=== PATIENT | female | born 1960 | race African-American/Black ===

== ENCOUNTER 2017-07-15 08:50 | Day surgery (SDC) | payer OTHER ==
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
[2017-07-15 09:21] LABS: Absolute Lymphocytes (CBC) 1.5 K/uL (0.7-4.9); Absolute Monocytes 0.3 K/uL (0.1-1.3); Absolute Neutrophil 1.6 K/uL (1.8-8.0); Basophils % 0.4 % (0-1.3); Eosinophils % 1.3 % (0-4.4); Hematocrit 37.1 % (36.0-45.0); Lymphocytes % 43.7 % (15.3-44.8); MCH 32.2 pg (27.0-35.0); MCV 96.2 fL (80-100); Monocytes % 7.9 % (3.3-12.3); RBC Red Blood Cell Count 3.86 M/uL (3.86-4.86)
[2017-07-15 09:27] LABS: Potassium 3.6 mEq/L (3.6-5.0)
[2017-07-15] MEDS ORDERED: CEFAZOLIN/SWI 1gm 1 GM/10 ML SYR ONE (09:41)
[2017-07-15] MEDS ORDERED: Ringers Lactate 1,000 ML IV ONE (09:41)
[2017-07-15] MEDS ORDERED: PROPOFOL 200 MG/20 ML VIAL IV ONE (10:36)
[2017-07-15] MEDS ORDERED: MIDAZOLAM HCL 2 MG/2 ML INJ ONE (10:36)
[2017-07-15] MEDS ORDERED: FENTANYL CITR 100 MCG/2 ML ONE (10:36)
[2017-07-15] MEDS ORDERED: LIDOCAINE 1% MPF 5 ML VIAL ONE (10:36)
[2017-07-15] MEDS ORDERED: ONDANSETRON 4 MG/2 ML VIAL ONE (11:25)
[2017-07-15] MEDS ORDERED: KETOROLAC 30 MG/ML INJ ONE (11:25)
--- NOTE | 2017-07-15 11:35 | P.BOP ---
Preoperative diagnosis: left dequervains Postoperative diagnosis: same Primary procedure: left dequervains release Estimated blood loss: <3ccs Anesthesia: General Transferred to: Recovery Room Condition: Good
[2017-07-15] MEDS: MEPERIDINE HCL 50 MG/ML AMP ONE ×2 (11:40→11:45)
[2017-07-15] MEDS ORDERED: MEPERIDINE HCL 50 MG/ML AMP ONE (11:50)
[2017-07-15] MEDS ORDERED: CODEINE 30MG/APAP 300MG TAB ONE (12:34)
--- NOTE | 2017-07-15 16:27 | EKG ---
Test Date: 2017-07-15 Test Time: 08:57:31 [employer] Bus Driver: CATHRYN MEASUREMENT RESULTS: Intervals: Rate: 77 DC: 138 QRSD: 78 QT: 378 QTc: 427 [place]: P: 48 DC: 138 QRS: 31 T: 52 INTERPRETIVE STATEMENTS: Normal sinus rhythm Normal ECG No previous ECG available for comparison Electronically Signed On 07-15-17 16:23:45 CDT by Moose Escobedo
--- NOTE | 2017-07-15 23:04 | OP ---
Date of Procedure: 07/15/2017 Surgeon: Luther Silva MD Postoperative Diagnosis: Left wrist first compartment stenosing tenosynovitis. Postoperative Diagnosis: Left wrist first compartment stenosing tenosynovitis. Procedure Performed: Left wrist release of first compartment stenosing tenosynovitis. Estimated Blood Loss: Less than 3 cc. Complications: There were no complications. Specimen: No pathology specimens sent. Indications For Operation: Ms. Quintero is a 56-year-old female, who has had significant pain and pro blems related to her left wrist. She was diagnosed with de Quervain's and she had an injection, whic h was helpful, but unfortunately her symptoms did return. She arrives to me back in my office with patrizia bolton current symptoms related to de Quervain's and all risks, benefits, and alternatives to de Quervain 's release have been discussed with the patient. She states she understands things as presented and wishes to proceed. Description Of Procedure: The patient was taken to the operating room and placed in supine position. General anesthesia was obtained by staff. Following this, a well-padded tourniquet was placed on t he superior left arm. The left upper extremity was then prepped and draped in the usual fashion for the procedure. Following this, a transverse incision just proximal to the radial styloid was marked out. The arm was then elevated, but not exsanguinated, and tourniquet was raised. An incision was m renetta carefully transversely through skin only, care being taken to protect the nerve fibers of the sup erficial radial nerve. The first compartment sheath was then encountered. It was then divided gentl y with a knife with gunter of synovial fluid. It was then divided from a proximal to distal direction with no sharp instruments being placed outside the direct visual operative field. This was followed by performing this from a proximal to distal direction until there were no constricting bands. The t endons themselves were then inspected and manipulated. There does not appear to be any movement asso ciated with the extensor pollicis brevis. Therefore, a search was made for an additional tendon gambino th, which was found superiorly as it generally is, which contained another tendon. This was then rel eased as before. Following this, manipulating this tendon does yield movement of the thumb extensor consistent with the extensor pollicis brevis. After this was gently irrigated and tourniquet was elsie pped, there was no significant bleeding and the skin was closed using nylon sutures. The patient was placed in a well-padded sterile dressing and taken to the recovery room in good condition. There we re no complications. ALLEN Voice ID: [id number] Report ID: [id number]
== END 2017-07-15 13:40 | disposition home or self-care (01) ==
LOC: OR 08:50
PROVIDERS: ATTEND Orthopaedic Surgery
PROC: 0LN60ZZ Release Left Lower Arm and Wrist Tendon, Open Approach (ICD-10-PCS; principal; 2017-07-15 11:00)
DX: M65.4 Radial styloid tenosynovitis [de Quervain] (principal); I10 Essential (primary) hypertension; D64.9 Anemia, unspecified
CPT/HCPCS: 36415; 80048; 85025; 93005; J0690; J2175; J2250; J2405; J3010